=== PATIENT | female | born 1975 ===

== ENCOUNTER 2025-05-09 09:00 | Day surgery (SDC) | payer OTHER ==
[2025-05-06 11:03] LABS: BASO % 0.7 % (0.1-1.2); EOS # 0.35 (0.04-0.54); EOS % 6.6 % (0.7-7.0); LYMPH # 2.18 (1.18-3.74); LYMPH % 40.8 % (19.3-53.1); MEAN PLATELET VOLUME 9.50 fl (9.4-12.4); MONO # 0.56 (0.24-0.82); MONO % 10.5 % (4.7-12.5); NEUT # 2.20 (1.56-6.13); NEUT % 41.2 % (34.0-71.1); RED CELL DISTRIBUTION WIDTH 14.1 % (11.6-14.4)
[2025-05-06 11:05] VITALS: BP 125/87
[2025-05-06 11:07] LABS: URINE APPEARANCE Clear; URINE BILIRRUBIN Negative (NEGATIVE); URINE BLOOD Small; URINE COLOR Yellow; URINE GLUCOSE Negative (NEGATIVE); URINE KETONE Negative (NEGATIVE); URINE LEUKOCYTE Trace; URINE NITRATE Negative; URINE PROTEIN Negative (NEGATIVE); URINE UROBILINOGEN 0.2 E.U./dl
[2025-05-06 11:12] LABS: URINE BACTERIA 10.7 uL (0.0-1933); URINE EPITHELIAL CELLS 9.5 uL (0.0-38.8); URINE RBC 28.8 uL (0.0-20.8); URINE WBC 11.9 uL (0.0-23.2)
[2025-05-06 11:17] LABS: URINE CAST 0.00 uL (0.0-1.40)
[2025-05-06 11:22] LABS: INR 0.96
[2025-05-06 12:08] LABS: ALT/SGPT 35.0 U/L (12-78); AST/SGOT 19.0 U/L (15-37); BILIRUBIN TOTAL 0.36 mg/dL (0.3-1.2); BUN CREA RATIO 22.0 (7.0-25.0); CREATININE SERUM 0.6 mg/dL (0.55-1.02); GFR 106.25; GLOBULINA 3.7 G/DL (2.4-3.5); GLUCOSE FASTING 99.0 mg/dL (65-100); OSMOLALITY SERUM 283.0 MOSM/KG (275-295)
[~2025-05-09] VITALS: Ht 157.5 cm; Wt 70.3 kg
[2025-05-09] MEDS ORDERED: CEFAZOLIN SODIUM 1,000 MG VIAL ONE (10:15)
[2025-05-09] MEDS ORDERED: POVIDONE-IODINE 118 ML BOTT TOP ONE (10:59)
[2025-05-09] MEDS ORDERED: SUGAMMADEX SODIUM 200 MG/2 ML VIAL IV ONE (14:29)
[2025-05-09] MEDS ORDERED: RINGERS SOLUTION,LACTATED 1,000 ML IV SCH (14:45)
[2025-05-09] MEDS ORDERED: KETOROLAC TROMETHAMINE 30 MG VIAL IV ONE (14:45)
[2025-05-09] MEDS ORDERED: MORPHINE SULFATE 4 MG/ML CARTRIDGE IV PRN (14:45)
[2025-05-09] MEDS ORDERED: ONDANSETRON HCL 2 MG/ML VIAL IV ONE (14:45)
[2025-05-09] MEDS ORDERED: FAMOTIDINE/PF 20 MG/2 ML VIAL IV ONE (14:45)
== END 2025-05-09 18:00 | disposition home or self-care (01) ==
LOC: CIR.AMB 09:00
PROVIDERS: ATTEND General Practice
DX: D27.1 Benign neoplasm of left ovary (principal); D39.11 Neoplasm of uncertain behavior of right ovary; R10.20 Pelvic and perineal pain unspecified side